=== PATIENT | female | born 1950 | race Asian ===

== ENCOUNTER 2020-07-16 20:52 | Emergency (ER) | payer MEDICARE, OTHER, SELFPAY ==
[2020-07-16] VITALS (10 sets, daily range): BP systolic 120–186; BP diastolic 58–89; PULSE 59–80; RESP 18–57; TEMP 36.3; O2SAT 96–98
--- NOTE | 2020-07-16 21:12 | DI.RAD.S_ITS ---
PROCEDURE: XR CHEST 1V INDICATIONS: chest pain TECHNIQUE: One view of the chest was acquired. COMPARISON: None. FINDINGS: Surgical changes and devices: None. Lungs and pleura: Lungs are clear. No pleural effusions or pneumothorax. Mediastinum: Mediastinal contours appear normal. Heart size is normal. Bones and chest wall: No suspicious bony lesions. Overlying soft tissues appear unremarkable. IMPRESSION: No acute cardiopulmonary abnormality. Dictated by: Reji Rodriguez M.D. on 07/16/2020 at 21:34 Approved by: Reji Rodriguez M.D. on 07/16/2020 at 21:35
[2020-07-16 21:26] LABS: Add Manual Diff / Slide Review NO; Basophils Absolute Auto 100 /uL (0-100); Basophils Percent Auto 1.5 % (0-2); Eosinophils Absolute Auto 200 /uL (0-450); Eosinophils Percent Auto 2.1 % (2-4); Hematocrit 39.9 % (36-46); Hemoglobin 13.2 g/dL (12.0-16.0); Lymphocytes Absolute Auto 2900 /uL (1100-4500); Lymphocytes Percent Auto 39.5 % (25-40); Mean Corpuscular HGB Conc 32.9 % (30-36); Mean Corpuscular Hemoglobin 29.5 PG (26-34); Mean Corpuscular Volume 89.5 fL (80-100); Monocytes Absolute Auto 500 /uL (0-900); Monocytes Percent Auto 6.4 % (3-14); Neutrophils Absolute Auto 3700 /uL (1500-7000); Neutrophils Percent Auto 50.5 % (50-75); Platelet Count 319 X10^3/uL (150-400); Red Blood Cell Count 4.46 X10^6/uL (4.0-5.2); White Blood Cell Count 7.4 X10^3/uL (4.5-11.0)
[2020-07-16 21:29] LABS: Prothrombin Time 10.9 SECONDS (10.1-12.7)
[2020-07-16 21:30] LABS: Alanine Aminotransferase 22 IU/L (<35); Albumin 4.7 g/dL (3.5-5.0); Albumin Globulin Ratio 1.4 (1.0-2.8); Alkaline Phosphatase 57 U/L (38-126); Aspartate Aminotransferase 27 IU/L (14-36); BUN Creatinine Ratio 22.2 (6-22); Bilirubin Total 0.3 mg/dL (0.2-1.3); Blood Urea Nitrogen 16 mg/dL (7-17); Calcium 10.2 mg/dL (8.4-10.2); Carbon Dioxide 29 mmol/L (22-32); Chloride 105 mmol/L (98-107); Creatine Kinase 87 U/L (30-135); Estimated Glomerular Filt Rate > 60.0 mL/min (>60); Globulin 3.4 g/dL (1.7-4.1); Glucose 116 mg/dL (80-110); HEMOLYSIS < 15 (0-50); Lipase 195 U/L (23-300); Potassium 4.4 mmol/L (3.4-5.1); Sodium 142 mmol/L (137-145); Total Protein 8.1 g/dL (6.3-8.2)
[2020-07-16 21:32] LABS: PTT Partial Thromboplastin Tim 33 SECONDS (26.4-36.2)
[2020-07-16 21:42] LABS: Troponin I < 0.012 ng/mL (0.01-0.034)
--- NOTE | 2020-07-16 21:58 | ED.ARRPALP ---
HPI - Arrhythmia/Palpitations General Chief Complaint: Arrhythmia/Palpitations Stated Complaint: feels like heart is beating too fast Time Seen by Provider: 07/16/20 21:40 Source: patient Mode of arrival: Ambulatory History of Present Illness HPI narrative: 70-year-old woman with a history of hypertension hyperlipidemia presents with complaints of palpitation. She has had palpitations for at least 2 years if not longer. She describes him as being worse after increased activity. They are not associated with chest pain, dyspnea or diaphoresis. She is unable to be more specific in the sensation that she is experiencing. She had a similar episode in August of 2019 and was seen in the emergency department on [facility]. She is complaining of tachycardia and did have an elevated D-dimer at that time so CT chest PE study was done that was unremarkable. There is no mention of rhythm abnormalities noted during her visit. She has not had a cardiology visit and it is not entirely clear that she has reviewed the complaints of palpitations with her primary care physician. Related Data Previous Rx's Medication Instructions Recorded metoprolol tartrate 25 mg PO DAILY PRN #30 tab 07/16/20 Allergies Allergy/AdvReac Type Severity Reaction Status Date / Time No Known Drug Allergies Allergy Verified 07/16/20 21:01 Review of Systems Review of Systems Narrative: Pertinent positive and negative findings as per HPI Remainder of review of systems is otherwise unremarkable for Constitutional: Fevers, chills, weakness ENT: No sore throat, neck pain, ear pain CV: Chest pain dyspnea on exertion Respiratory: Cough, wheeze, dyspnea GI: Nausea, vomiting, diarrhea, : Dysuria, hematuria, flank pain MS: Muscle weakness, numbness, joint swelling or warmth Skin: Rashes, nonhealing lesions Neuro: Syncope, dizziness, tingling Patient History Medical History (Updated 07/16/20 @ 23:51 by Karen Choe MD) Hyperlipidemia Hypertension Exam Narrative Exam Narrative: General: Healthy appearing, in no acute distress. Able to give a complete and coherent history. Well-nourished well-developed HEENT: Moist mucous membranes, normal sclera with reactive pupils, Neck: No JVD, supple Respiratory: Lungs are clear to auscultation, no wheezing no rales no rhonchi. Full and symmetrical air movement Cardiac: Regular rate and rhythm no murmurs no bruits Abdomen: Soft, nontender, good bowel tones, no flank pain Skin: Warm and dry, no rashes Neurologic: Grossly neurologically intact with no obvious asymmetries or abnormalities Extremities: No trauma, well perfused Psych: Cooperative, appropriate insight and affect Initial Vital Signs Initial Vital Signs: Vital Signs Temperature 97.4 F L 07/16/20 21:00 Pulse Rate 80 07/16/20 21:00 Respiratory Rate 18 07/16/20 21:00 Blood Pressure 186/89 H 07/16/20 21:00 Pulse Oximetry 98 07/16/20 21:00 Course Orders Ordered: ED Orders 07/16/20 21:08 Complete Blood Count AUTO DIFF Stat Comprehensive Metabolic Panel Stat Lipase Stat Partial Thromboplastin Time Stat Prothrombin Time INR Stat Troponin & CK Cardiac Panel Stat 07/16/20 21:12 XR chest 1V Stat EKG-12 Lead Stat Discontinued Medications Metoprolol Tartrate (Metoprolol Ir 25 Mg Tablet) 25 mg PO NOW ONE Stop: 07/16/20 22:19 Last Admin: 07/16/20 22:25 Dose: 25 mg Documented by: MARY JANE Vital Signs Vital signs: Vital Signs - 8 hr 07/16/20 21:00 07/16/20 21:15 07/16/20 21:30 Temperature 97.4 F L Pulse Rate 80 72 71 Respiratory Rate 18 25 H 18 Blood Pressure 186/89 H Pulse Oximetry 98 97 97 07/16/20 22:02 07/16/20 22:07 07/16/20 22:30 Temperature Pulse Rate 68 69 62 Respiratory Rate 36 H 57 H 24 Blood Pressure 165/77 H Pulse Oximetry 98 98 97 07/16/20 22:31 07/16/20 23:00 07/16/20 23:36 Temperature Pulse Rate 63 67 59 L Respiratory Rate 20 22 20 Blood Pressure 122/58 L 120/72 Pulse Oximetry 97 96 07/16/20 23:38 07/17/20 00:00 Temperature Pulse Rate 59 L 63 Respiratory Rate 19 32 H Blood Pressure 144/73 H Pulse Oximetry 97 90 L MDM - Arrhythmia/Palpitations Medical Records Attestation: I reviewed the patient's medical records. Lab Data Attestation: I reviewed the patient's lab results. Result diagrams: 07/16/20 21:08 07/16/20 21:08 Labs: Lab Results 07/16/20 07/16/2021 Range/Units 21:08 21:08 21:08 WBC 7.4 (4.5-11.0) X10^3/uL RBC 4.46 (4.0-5.2) X10^6/uL Hgb 13.2 (12.0-16.0) g/dL Hct 39.9 (36-46) % MCV 89.5 (80-100) fL MCH 29.5 (26-34) PG MCHC 32.9 (30-36) % RDW 13.0 (11.6-14.8) % Plt Count 319 (150-400) X10^3/uL Neut % (Auto) 50.5 (50-75) % Lymph % (Auto) 39.5 (25-40) % [place] % (Auto) 6.4 (3-14) % Eos % (Auto) 2.1 (2-4) % Baso % (Auto) 1.5 (0-2) % Neut # (Auto) 3700 (5339-2465) /uL Lymph # (Auto) 2900 (4582-6468) /uL [place] # (Auto) 500 (0-900) /uL Eos # (Auto) 200 (0-450) /uL Baso # (Auto) 100 (0-100) /uL PT 10.9 (10.1-12.7) SECONDS INR 1.0 (0.9-1.3) APTT 33 (26.4-36.2) SECONDS Sodium 142 (137-145) mmol/L Potassium 4.4 (3.4-5.1) mmol/L Chloride 105 (98-107) mmol/L Carbon Dioxide 29 (22-32) mmol/L BUN 16 (7-17) mg/dL Creatinine 0.72 (0.52-1.04) mg/dL Estimated GFR > 60.0 (>60) mL/min BUN/Creatinine Ratio 22.2 H (6-22) Glucose 116 H (80-110) mg/dL Calcium 10.2 (8.4-10.2) mg/dL Total Bilirubin 0.3 (0.2-1.3) mg/dL AST 27 (14-36) IU/L ALT 22 (<35) IU/L Alkaline Phosphatase 57 (38-126) U/L Total Creatine Kinase 87 (30-135) U/L CK-MB (CK-2) TNP CK-MB (CK-2) Rel Index TNP Troponin I < 0.012 (0.01-0.034) ng/mL Total Protein 8.1 (6.3-8.2) g/dL Albumin 4.7 (3.5-5.0) g/dL Globulin 3.4 (1.7-4.1) g/dL Albumin/Globulin Ratio 1.4 (1.0-2.8) Lipase 195 (23-300) U/L Imaging Data Chest x-ray: Radiologist's Impresson: FINDINGS: Surgical changes and devices: None. Lungs and pleura: Lungs are clear. No pleural effusions or pneumothorax. Mediastinum: Mediastinal contours appear normal. Heart size is normal. Bones and chest wall: No suspicious bony lesions. Overlying soft tissues appear unremarkable. IMPRESSION: No acute cardiopulmonary abnormality. Dictated by: Reji Rodriguez M.D. on 07/16/2020 at 21:34 MDM Narrative Medical decision making narrative: 70-year-old woman presents with a history of intermittent palpitations with no other associated symptoms. Labs are reassuring. While we were talking she complains of the palpitations sensation with no correlating abnormalities appreciated on her house coordinator. She is given a at 25 mg dose of immediate release metoprolol There is no evidence of acute coronary syndrome, infection, pneumothorax, pulmonary embolism, COVID-19 significant pathologic arrhythmia. Records from [facility] are reviewed similar complaints similar findings a CT scan was done to rule out PE at that time. Patient responded very nicely to 25 mg of immediate release metoprolol with significant subjective decrease in the palpitations symptoms she is experiencing. Again minor sinus arrhythmia is all that was noted on her telemetry strips while in the emergency department. I recommended that she follow-up with her primary care physician. She may benefit from a Holter monitor for further delineation of the palpitations that she is noticing. Will give her copies of ER notes from [facility] and current labs and x-ray and EKG. All of this is explained to the patient she and her are pleased and safe for home discharge at this time. Discharge Plan Departure Patient Disposition: Home Clinical Impression: Palpitations Instructions: DI for Arrhythmias Activity Restrictions/Additional Instructions: Thank you for coming in today I did not find add life-threatening reason to explain the sensations and palpitations you are currently having There is no sign of a heart attack, infection in your lungs, collapsed lungs, blood clots in her lungs and while your heart was being monitored there were no significant abnormalities to your heart rhythm. The next step in figuring this out might be a Holter monitor. This is an outpatient cardiac rhythm monitor. Please schedule an appointment with your primary care physician to discuss this. I have given you a prescription for metoprolol 25 mg. This is a blood pressure medication that can also slow your heart rate. After getting this in the emergency department, he did notice that the palpitations were not as bothersome. If you are having a day where the palpitations are particularly troublesome, you can take 1 of these pills. You do not need to take them every day. I have given you copies of your labs x-rays and EKGs from this visit as well as your [facility] visit in August of 2019 please [place] If you have worsening symptoms or develop new findings, please feel free to return to the ER for further evaluation Prescriptions: New metoprolol tartrate 25 mg tablet 25 mg PO DAILY PRN (Reason: Symptomatic palpitation) Qty: 30 RF: 0
[2020-07-16] MEDS: METOPROLOL IR 25 MG TABLET PO (22:25)
[2020-07-17] VITALS: PULSE 63; RESP 32; O2SAT 90
== END 2020-07-17 00:05 | disposition home or self-care (01) ==
PROVIDERS: Emergency Provider Emergency Medicine
DX: R00.2 Palpitations (principal)
CPT/HCPCS: 36415; 71045; 80053; 82550; 83690; 84484; 85025; 85610; 85730; 93005; 93010; 99284

== ENCOUNTER 2021-05-29 08:57 | Emergency (ER) | payer MEDICARE, OTHER, SELFPAY ==
[2021-05-29] VITALS (15 sets, daily range): BP systolic 128–175; BP diastolic 68–85; PULSE 68–94; RESP 15–20; TEMP 36.5; O2SAT 96–100; BMI 27.8
--- NOTE | 2021-05-29 09:14 | ED.ABDPAIN ---
HPI - Abdominal Pain General Chief Complaint: Chest Pain Stated Complaint: Throbbing, Palpitations in chest Time Seen by Provider: 05/29/21 09:13 History of Present Illness HPI narrative: The patient has experienced a flicking abdominal pain for the last 5 days. She has no nausea vomiting. She has no dietary intolerance. She has no chest pain, or dyspnea. She denies back pain. She has no peripheral numbness or weakness. She was seen at the walk-in clinic in [place]. No pulsatile mass was discovered, yet concern for a aortic process has been raised. She is sent here for additional evaluation. She has had a history of hypertension, and hyperlipidemia. She is not diabetic. She has no history of vascular disease. Related Data Previous Rx's Medication Instructions Recorded metoprolol tartrate 25 mg tablet 25 mg PO DAILY PRN #30 tab 07/16/20 Allergies Allergy/AdvReac Type Severity Reaction Status Date / Time No Known Drug Allergies Allergy Verified 07/16/20 21:01 Review of Systems Constitutional Constitutional: Denies body ache(s), Denies chills and Denies fever(s) ENT Ears, Nose, Mouth, and Throat: Denies vertigo and Denies dizziness Comments: No ENT complaints. Cardiovascular Cardiovascular: Denies chest pain, Denies rapid heart rate, Denies pedal edema and Denies dyspnea Respiratory Respiratory: Denies cough and Denies dyspnea Gastrointestinal Gastrointestinal: Reports abdominal pain, Denies nausea and Denies vomiting Comments: See HPI. Genitourinary Comments: No urinary complaints. Musculoskeletal Musculoskeletal: Denies back pain Integumentary/Breasts Skin/Breast: Denies lesions and Denies rash Neurologic Neurologic: Denies confusion, Denies vertigo and Denies dizziness Psychiatric Psychiatric: Denies confusion Hematologic/Lymphatic On Anticoagulants: No Patient History Medical History Hyperlipidemia Hypertension Social History Smoking Status: Former smoker Exam Initial Vital Signs Initial Vital Signs: Vital Signs Temperature 97.7 F 05/29/21 09:00 Pulse Rate 94 H 05/29/21 09:00 Respiratory Rate 18 05/29/21 09:00 Blood Pressure 175/84 H 05/29/21 09:00 Pulse Oximetry 100 05/29/21 09:00 Const General: cooperative, healthy appearing and comfortable [facility] Head: normocephalic and atraumatic Eyes Conjunctivae: conjunctivae normal Sclera: sclerae normal Pupils: PERRL EOM: EOM intact bilaterally Neck Neck: No JVD Chest Chest: normal inspection of the chest Resp Effort & Inspection: normal respiratory effort Auscultation: clear to auscultation bilaterally Cardio Rate: regular rate Rhythm: regular rhythm Heart Sounds: S1 normal, S2 normal, no gallops, no murmurs and no rubs GI Inspection: normal to inspection Palpation: soft, No mass, No pulsatile mass and No tender Back/Spine/Pelvis Back: normal to inspection Skin General: no rashes or lesions noted Neuro General: patient alert, patient awake, patient oriented x3 and no focal motor deficits Extrem General: normal to inspection, no pedal edema and no calf tenderness Psych Mental Status: mental status grossly normal Course Course Course Narrative: The CTA results were discussed with vascular surgery, Dr. Velazco at the [facility]. Atherosclerotic changes are noted. There is no suggestion of an aortic ulcer, dissection or aneurysm. Orders Ordered: ED Orders 05/29/21 09:30 Complete Blood Count AUTO DIFF Stat Comprehensive Metabolic Panel Stat Lipase Stat 05/29/21 09:40 CT angio chest abdomen pelvis Stat 05/29/21 10:00 Urine Microscopic Stat Sodium Chloride (Normal Saline 0.9%) 1,000 mls @ 150 mls/hr IV CONT AKUA Last Admin: 05/29/21 10:03 Dose: 150 mls/hr Documented by: DEENA Vital Signs Vital signs: Vital Signs - 8 hr 05/29/21 09:00 Temperature 97.7 F Pulse Rate 94 H Respiratory Rate 18 Blood Pressure 175/84 H Pulse Oximetry 100 MDM - Abdominal Pain Lab Data Result diagrams: 05/29/21 09:30 05/29/21 09:30 Labs: Lab Results 05/29/21 05/29/21 05/29/21 Range/Units 09:30 09:30 10:00 WBC 5.7 (4.5-11.0) X10^3/uL RBC 4.53 (4.0-5.2) X10^6/uL Hgb 13.2 (12.0-16.0) g/dL Hct 38.6 (36-46) % MCV 85.3 (80-100) fL MCH 29.1 (26-34) PG MCHC 34.1 (30-36) % RDW 14.9 H (11.6-14.8) % Plt Count 309 (150-400) X10^3/uL Neut % (Auto) 64.6 (50-75) % Lymph % (Auto) 25.8 (25-40) % [place] % (Auto) 7.7 (3-14) % Eos % (Auto) 1.1 L (2-4) % Baso % (Auto) 0.8 (0-2) % Neut # (Auto) 3700 (8339-7013) /uL Lymph # (Auto) 1500 (1332-3208) /uL [place] # (Auto) 400 (0-900) /uL Eos # (Auto) 100 (0-450) /uL Baso # (Auto) 0 (0-100) /uL Sodium 139 (137-145) mmol/L Potassium 3.9 (3.4-5.1) mmol/L Chloride 106 (98-107) mmol/L Carbon Dioxide 27 (22-32) mmol/L BUN 13 (7-17) mg/dL Creatinine 0.69 (0.52-1.04) mg/dL Estimated GFR > 60.0 (>60) mL/min BUN/Creatinine Ratio 18.8 (6-22) Glucose 130 H (80-110) mg/dL Calcium 9.5 (8.4-10.2) mg/dL Total Bilirubin 0.4 (0.2-1.3) mg/dL AST 33 (14-36) IU/L ALT 24 (<35) IU/L Alkaline Phosphatase 58 (38-126) U/L Total Protein 8.1 (6.3-8.2) g/dL Albumin 4.7 (3.5-5.0) g/dL Globulin 3.4 (1.7-4.1) g/dL Albumin/Globulin Ratio 1.4 (1.0-2.8) Lipase 138 (23-300) U/L Urine RBC 1-5/hpf (0-5/HPF) Urine WBC 0-1/hpf (0-5/HPF) Ur Squamous Epith Cells 10-30 /hpf H (0-5/HPF) Amorphous Sediment 1+ Urine Bacteria Moderate (10-30) H (None) Ur Culture Indicated? Cult not indicated Point of care testing: Urine Dip Bedside Urine Glucose Negative Bedside Urine Bilirubin - Negative Bedside Urine Ketone - Negative Urine Specific [place] 1.010 Bedside Urine Occult Blood +/- Bedside Urine pH 7.5 Bedside Urine Protein - Negative Bedside Urine Urobilinogen - Negative Bedside Urine Nitrite - Negative Bedside Urine Leukocytes - Negative Esterase Imaging Data Chest x-ray: Radiologist's Impression: No acute cardiopulmonary process. Abdomen/chest/pelvis CTA.: Radiologist's Impression: 1. Minimal irregularity at the aortic isthmus.? This could represent penetrating atherosclerotic ulcer versus noncalcified atherosclerotic plaque.? Moderate calcified plaque at the aortic arch. ? 2. No aortic dissection.? No central pulmonary embolism. ? 3. Area of scarring with calcification in the left upper lobe versus calcified granuloma. ? 4. No acute airspace opacity.? No pleural effusion. ? 5. Large hiatal hernia. ? 6. Hepatic steatosis. ? 7. Diverticulosis.? No free fluid in the abdomen or pelvis. ECG Data Attestation: I personally reviewed and interpreted this ECG as follows: (Normal sinus rhythm rate 88 beats per minute. Q waves II,III, and AVF.) Discharge Plan Departure Patient Disposition: Home Clinical Impression: Aortic atherosclerosis, Hypertension, Hyperlipidemia Instructions: High Triglycerides, Essential Hypertension Activity Restrictions/Additional Instructions: I recommend baby aspirin 1 tablet daily. Continue your current medications. Follow-up with your primary care doctor, review blood pressure and cholesterol management. Return here as needed. Prescriptions: No Action metoprolol tartrate 25 mg tablet 25 mg PO DAILY PRN (Reason: Symptomatic palpitation) Qty: 30 0RF Referrals: Tita Patel ARNP [Primary Care Provider] -
--- NOTE | 2021-05-29 09:40 | DI.CT.S_ITS ---
PROCEDURE: CT ANGIO CHEST ABDOMEN PELVIS INDICATIONS: R/O aneurysm/ dissection mid chest throbbing TECHNIQUE: Precontrast 5 mm thick sections acquired from the lung apices to the iliac crests. After the administration of intravenous contrast, 2.5 mm thick sections again acquired from the lung apices to the iliac crests. Maximum intensity projection (MIP) oblique sagittal and coronal reformats were then acquired. For radiation dose reduction, the following was used: automated exposure control. COMPARISON: [facility], CR, XR CHEST 1V, 07/16/2020, 21:16. FINDINGS: Image quality: Excellent. AORTA: There is a focus of irregularity within the thoracic aorta at the isthmus just distal to the takeoff of the left subclavian vein, (5/4). This could represent a penetrating ulcer versus noncalcified atherosclerotic plaque. There is moderate calcified plaque in the aortic arch. No aortic dissection. No ascending thoracic aortic aneurysm. The ascending aorta measures 3.2 cm. The left vertebral artery originates off the aortic arch, variant. Descending thoracic aorta irregularity, (5/74). This has the appearance of noncalcified plaque. No central pulmonary embolism. CHEST: Lungs and pleura: Left upper lobe curvilinear calcification with surrounding streaky opacity measuring 1.1 x 0.4 cm, (6/40). Minimal thickening at the left major fissure could represent a intrapulmonary lymph node. No acute airspace opacities. No pleural effusions or pneumothorax. Central and peripheral airways are patent and normal in caliber. Mediastinum: Heart size is normal. Mild to moderate three-vessel coronary artery calcifications. No pericardial effusion. No mediastinal or hilar adenopathy by size criteria. Central pulmonary arteries are normal in size. Esophagus is normal in caliber. Large hiatal hernias. Bones and chest wall: No axillary adenopathy by size criteria. Thyroid gland is unremarkable. No suspicious bony lesions. No vertebral body compression fractures. ABDOMEN: Vasculature: There is moderate plaque at the origin of the celiac, SMA, left renal artery, and mild at the right renal artery ostium the mesenteric arteries are patent. Patent and conventional hepatic arterial anatomy. UMA is patent. There is moderate calcified plaque in the abdominal aorta. Solid organs: Liver is normal in size. Hepatic steatosis. Hypodensity in the left lobe of the liver measuring 2.5 x 2.3 cm, (5/85). Hypodensity in the right lobe of the liver near the dome measuring 1 cm, (5/80). Punctate hypodensity in the inferior left lobe of the liver, (5/96). No enhancement is appreciated within these foci. These most likely represent benign cysts. Additionally, there is a small hyperdense focus in the right lobe of the liver, (5/112). No enhancement appreciated. This could represent an area of focal fatty sparing or hemangioma. Punctate calcified granuloma in the right lobe of the liver. Gallbladder is unremarkable. Biliary system is non dilated. Pancreas enhances normally. Spleen is normal in size and enhancement. No adrenal nodules. Both kidneys are normal in size and enhancement, without hydronephrosis. Small renal calcifications. Peritoneum and bowel: No free fluid or air. Diverticulosis. No diverticulitis. Normal appendix. No small bowel obstruction Nodes and vessels: No retroperitoneal or mesenteric adenopathy by size criteria. Inferior vena cava is normal in morphology. Miscellaneous: No ventral hernias. PELVIS: Genitourinary: Bladder wall thickness is normal. Retroverted uterus. Miscellaneous: No inguinal hernias or adenopathy. No ventral hernias. Bones: No suspicious bony lesions. No vertebral body compression fractures. IMPRESSION: 1. Minimal irregularity at the aortic isthmus. This could represent penetrating atherosclerotic ulcer versus noncalcified atherosclerotic plaque. Moderate calcified plaque at the aortic arch. 2. No aortic dissection. No central pulmonary embolism. 3. Area of scarring with calcification in the left upper lobe versus calcified granuloma. 4. No acute airspace opacity. No pleural effusion. 5. Large hiatal hernia. 6. Hepatic steatosis. 7. Diverticulosis. No free fluid in the abdomen or pelvis. Dictated by: Reji Rodriguez M.D. on 05/29/2021 at 10:38 Approved by: Reji Rodriguez M.D. on 05/29/2021 at 10:58
[2021-05-29 09:49] LABS: Add Manual Diff / Slide Review NO; Basophils Absolute Auto 0 /uL (0-100); Basophils Percent Auto 0.8 % (0-2); Eosinophils Absolute Auto 100 /uL (0-450); Eosinophils Percent Auto 1.1 % (2-4); Hematocrit 38.6 % (36-46); Hemoglobin 13.2 g/dL (12.0-16.0); Lymphocytes Absolute Auto 1500 /uL (1100-4500); Lymphocytes Percent Auto 25.8 % (25-40); Mean Corpuscular HGB Conc 34.1 % (30-36); Mean Corpuscular Hemoglobin 29.1 PG (26-34); Mean Corpuscular Volume 85.3 fL (80-100); Monocytes Absolute Auto 400 /uL (0-900); Monocytes Percent Auto 7.7 % (3-14); Neutrophils Absolute Auto 3700 /uL (1500-7000); Neutrophils Percent Auto 64.6 % (50-75); Platelet Count 309 X10^3/uL (150-400); Red Blood Cell Count 4.53 X10^6/uL (4.0-5.2); Red Cell Distribution Width 14.9 % (11.6-14.8); White Blood Cell Count 5.7 X10^3/uL (4.5-11.0)
[2021-05-29 10:03] LABS: Alanine Aminotransferase 24 IU/L (<35); Albumin 4.7 g/dL (3.5-5.0); Albumin Globulin Ratio 1.4 (1.0-2.8); Alkaline Phosphatase 58 U/L (38-126); Aspartate Aminotransferase 33 IU/L (14-36); BUN Creatinine Ratio 18.8 (6-22); Bilirubin Total 0.4 mg/dL (0.2-1.3); Blood Urea Nitrogen 13 mg/dL (7-17); Calcium 9.5 mg/dL (8.4-10.2); Carbon Dioxide 27 mmol/L (22-32); Chloride 106 mmol/L (98-107); Estimated Glomerular Filt Rate > 60.0 mL/min (>60); Globulin 3.4 g/dL (1.7-4.1); Glucose 130 mg/dL (80-110); HEMOLYSIS < 15 (0-50); Lipase 138 U/L (23-300); Potassium 3.9 mmol/L (3.4-5.1); Sodium 139 mmol/L (137-145); Total Protein 8.1 g/dL (6.3-8.2)
[2021-05-29] MEDS: SODIUM CHLORIDE 0.9% 1,000 ML 150 ML IV (10:03)
--- NOTE | 2021-05-29 10:53 | PC.NURSE ---
Denies chest pain. Sensation of palpitation and throbbing in chest since tuesday.
[2021-05-29 11:47] LABS: Amorphous Sediment Urine 1+; Bacteria Urine Moderate (10-30); RBC Urine 1-5/HPF (0-5/HPF); Squamous Epithelial Cell Urine 10-30 /HPF (0-5/HPF); WBC Urine 0-1/HPF (0-5/HPF)
[2021-05-29 11:48] LABS: Culture Indicated Urine Cult Not Indicated
== END 2021-05-29 14:45 | disposition home or self-care (01) ==
PROVIDERS: Emergency Provider Emergency Medicine; PCP Nurse Practitioner Family
DX: I70.0 Atherosclerosis of aorta (principal); I10 Essential (primary) hypertension; E78.5 Hyperlipidemia, unspecified; Z87.891 Personal history of nicotine dependence
CPT/HCPCS: 36415; 71275; 74174; 80053; 81003; 81015; 83690; 85025; 93005; 96360; 96361; 99284